=== PATIENT | male | born 2000 | race Caucasian/White ===

== ENCOUNTER 2025-07-25 14:59 | Outpatient (REF) | payer MEDICAID, SELFPAY ==
--- OUTSIDE RECORDS SUMMARY | 2025-07-25 14:00 | XMS_ITS | Encounter Summary ---
Author Organization [employer] Address [address] [facility] [address] [place] [address] Care Team Providers Care Skirt Maker Name Role Phone Faith Young CNP Primary Care Provider [phone] Encounter Details Date Type Department Care Team (Late st Contact Info) Description 07/25/2025 2:00 PM EDT Office Visit [facility] [address], [place] [id number] Faith Young CNP [address] [place] [address] Encounter to establish care (Primary Dx); Dissecting cellulitis of scalp; Chronic bilateral low back pain without sciatica Social History Tobacco Use Types Packs/Day Years Used Date Smoking Tobacco: Never Smokeless Tobacco: Never Tobacco Cessation:Counseling Given: Not Answered Alcohol Use Standard Drinks/Week Comments Never 0 (1 standard drink = 0.6 oz pur e alcohol) Sex and Gender Information Value Date Recorded Sex Assigned at Male 07/24/2025 3:39 PM EDT Legal Sex Male 12:03 PM EDT Gender Identity Male 07/24/2025 3:39 PM EDT Sexual Orientation Don't know 07/24/2025 3: 39 PM EDT documented as of this encounter Last Filed Vital Signs Vital Sign Reading Time Taken Comments Blood Pressure 144/82 07/25/2025 2:24 PM EDT Pulse 70 07/25/2025 2:24 PM EDT Temperature 36.4 C (97.6 F) 07/25/2025 2:24 PM EDT Respiratory Rate 20 07/25/2025 2:24 PM EDT Oxygen Saturation - - Inhaled Oxygen Concentration - - Weight 72.2 kg (159 lb 3.2 oz) 07/25/2025 2:24 P M EDT Height 180.3 cm (5' 11 ) 07/25/2025 2:24 PM EDT Body Mass Index 22.2 07/25/2025 2:24 PM EDT documented in this encounter Progress Notes * Faith Young, AMNA - 07/25/2025 2:00 PM EDT Images from the original note were not included. Subjective: Naga Bolaños is a 24 y.o. male who presents to the office for a new patient visit. Previous [facility]- Naun To PA-C. Interim history: Last PCP visit 03/2023 Current concerns: Bumps on base of neck/scalp Chronic low back pain no associated weakness in lower legs, no joint issues, no prior back injuries, no issues with urination or bowel movements since onset. Possible history of scoliosis, previouslytold it was possible but never confirmed by imaging, no prior bracing or physical therapy Problem List[1] Surgical History[2] Family History[3] Social History Living situation: lives with two brothers, cousin and his partner Employment/Education: unemployed Diet/exercise: Substance use: denies any substance Sexual activity: AFAB partners, would like STI screening today Mental health: No data recorded Allergies[4] Review of Systems Constitutional: Negative for chills, fatigue, fever and unexpected weight change. HENT: Negative. Eyes: Negative. Respiratory: Negative. Cardiovascular: Negative. Gastrointestinal: Negative for constipation, diarrhea, nausea and vomiting. Endocrine: Negative. Genitourinary: Negative. Musculoskeletal: Positive for arthralgias and back pain. Negative for gait problem, joint swelling,myalgias, neck pain and neck stiffness. Skin: Positive for color change and rash. Allergic/Immunologic: Negative. Neurological: Negative. Psychiatric/Behavioral: Negative. Vitals: 07/25/25 1424 BP: (!) 144/82 BP Location: Left arm Patient Position: Sitting BP Cuff Size: Adult Pulse: 70 Resp: 20 Temp: 97.6 ??F (36.4 ??C) TempSrc: Oral Weight: 159 lb 3.2 oz (72.2 kg) Height: 5' 11 (1.803 m) Physical Exam Vitals reviewed. Constitutional: General: He is not in acute distress. Appearance: Normal appearance. He is not ill-appearing, toxic-appearing or diaphoretic. HENT: Head: Normocephalic and atraumatic. Right Ear: Tympanic membrane normal. Left Ear: Tympanic membrane normal. Eyes: Extraocular Movements: Extraocular movements intact. Pupils: Pupils are equal, round, and reactive to light. Cardiovascular: Rate and Rhythm: Normal rate and regular rhythm. Pulses: Normal pulses. Heart sounds: Normal heart sounds. No murmur heard. No friction rub. No gallop. Pulmonary: Effort: Pulmonary effort is normal. No respiratory distress. Breath sounds: Normal breath sounds. No stridor. No wheezing, rhonchi or rales. Chest: Chest wall: No tenderness. Musculoskeletal: Cervical back: Neck supple. No tenderness. Right lower leg: No edema. Left lower leg: No edema. Lymphadenopathy: Cervical: No cervical adenopathy. Skin: Neurological: General: No focal deficit present. Mental Status: He is alert and oriented to person, place, and time. Mental status is at baseline. Psychiatric: Mood and Affect: Mood normal. Behavior: Behavior normal. Thought Content: Thought content normal. Judgment: Judgment normal. Assessment & Plan Encounter to establish care Routine Screening and Health Maintenance Optometry: No Dental: Yes ASCVD risk: 24 y.o. male low Lab Review: orders written for new lab studies as appropriate; see orders Flu shot due otherwise IMMs UTD Routine Cancer Screening Colon CA: not indicated d/t age, will consider earlier screening due to family hx Lung CA: not indicated d/t age and lack of smoking hx PSA: not indicated d/t age Orders: CBC auto differential; Future Basic Metabolic Panel; Future Lipid Panel, Standard; Future HIV-1/2 Antigen and Antibodies, Fourth Generation, with Reflexes; Future Hepatitis C Antibody with Reflex to HCV, RNA, Quantitative, Real-Time PCR; Future Vitamin D, 25-Hydroxy, Total, Immunoassay; Future TSH W/Reflex to FT4; Future RPR (Monitor) with Reflex to Titer; Future Chlamydia/N. 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 Take with a full glass of water and do not lie down for at least 30 minutes after. Chronic bilateral low back pain without sciatica Plan to obtain imaging to confirm scoliosis and evaluate extent of scoliosis Orders: XR Scoliosis survey; Future Scheduled follow-up appointment in 3 months to reassess response to treatment and monitor skin and spine conditions. Current Medications[5] There is no immunization history on file for this patient. Follow up in about 3 months (around 10/24/2025). [1] Patient Active Problem List Diagnosis Vitamin D deficiency, unspecified Skin lesions Scoliosis [2] History reviewed. No pertinent surgical history. [3] Family History Problem Relation Name Age of Onset Diabetes type II Mother Colon cancer Father Colon cancer Paternal Grandmother [4] No Known Allergies [5] Current Outpatient Medications Medication Sig Dispense Refill clobetasol (Olux) 0.05 % topical foam Apply topically 2 times daily. ibuprofen 800 MG tablet Take 1 tablet by mouth every 6 (six) hours during the day. doxycycline (Vibra-Tabs) 100 MG tablet Take 1 tablet (100 mg) by mouth 2 times daily. Take with a full glass of water and do not lie down for at least 30 minutes after. 60 tablet 2 No current facility-administered medications for this visit. documented in this encounter Plan of Treatment Scheduled Orders Name Type Priority Associated Diagnoses Orde r Schedule Basic Metabolic Panel Lab Routine Encounter to establish care Expected: 07/25/2025 (Approximate), Expires: 07/25/2026 Lipid Panel, Standard Lab Routine Encounter to establish care Expected: 07/25/2025 (Approximate), Expires: 07/25/2026 HIV-1/2 Antigen and Antibodies, Fourth Generation, with Reflexes Lab Routine Encounter to establish care Expected: 07/25/2025 (Approximate), Expires: 07/25/2026 Hepatitis C Antibody with Reflex to HCV, RNA, Quantitative, Real-Time PCR Lab Routine Encounter to establish care Expected: 07/25/2025, Expires: 07/25/2026 Vitamin D, 25-Hydroxy, Total, Immunoassay Lab Routine Encounter to establish care Expected: 07/25/2025 (Approximate), Expires: 07/25/2026 TSH W/Reflex to FT4 Lab Routine Encounter to establish care Expected: 07/25/2025 (Approximate), Expires: 07/25/2026 RPR (Monitor) with Reflex to Titer Lab Routine Encounter to establish care Expected: 07/25/2025, Expires: 07/25/2026 Chlamydia/N. Gonorrhoeae, PCR, Urine Lab Routine Encounter to establish care Ordered: 07/25/2025 XR Scoliosis survey Imaging Routine Chronic bilateral low back pain without sciatica Expected: 07/25/2025, Expires: 07/25/2026 documented as of this encounter Procedures Procedure Name Priority Date/Time Associated Diagnosis Comments CBC WITH AUTO DIFFERENTIAL Routine 07/25/2025 3:07 PM EDT Encounter to establish care documented in this encounter Results * (ABNORMAL) CBC auto differential (07/25/2025 3:07 PM EDT) White Blood Count 5.5 4.8 - 10.8 X10*3/uL [facility] Red Blood Count 4.94 4.60 - 5.80 X10*6/uL [facility] Hemoglobin 14.2 14.0 - 18.0 g/dl [facility] Hematocrit 42.5 42.0 - 52.0 % [facility] Mean Corpuscular Volume 86.0 80.0 - 98.0 fL [facility] Mean Corpuscular Hemoglobin 28.7 27.0 - 33.0 pg [facility] Mean Corpuscular HGB Conc 33.4 31.0 - 36.0 g/dl [facility] Red Cell Distribution Width 13.4 11.0 - 16.0 % [facility] Platelet Count 240 160 - 400 X10*3/uL [facility] Mean Platelet Volume 11.7 9.4 - 12.4 fL [facility] Neutrophils Percent Auto 36.9(L) 45 - 73 % [facility] Imm Gran Pct Auto 0.2 0.0 - 0.4 % [facility] Lymphocytes Percent Auto 52.5(H) 20 - 40 % [facility] Monocytes Percent Auto 9.0 2 - 11 % [facility] Eosinophils Percent Auto 0.7 0 - 4 % [facility] Basophils Percent Auto 0.7 0 - 2 % [facility] NRBC Pct Auto 0.0 0.0 - 0.2 /100WBC [facility] Neutrophils Absolute Auto 2.0 2.0 - 8.3 x10*3/uL [facility] Imm Gran Abs Auto 0.01 0.00 - 0.03 X10*3/uL [facility] Lymphocytes Absolute Auto 2.9 1.2 - 4.9 X10*3/uL [facility] Monocytes Absolute Auto 0.5 0.1 - 1.2 X10*3/uL [facility] Eosinophils Absolute Auto 0.0 0.0 - 0.4 X10*3/uL [facility] Basophils Absolute Auto 0.0 0.0 - 0.2 X10*3/uL [facility] NRBC Abs Auto 0.000 0.0 - 0.012 X10*3/uL [facility] Blood Venous blood specimen / Unknown 07/25/2025 3:07 PM EDT 07/25/2025 6:17 PM EDT Faith Young [facility] LAB BLOOD ORDERABLES Emy l Result [facility] [address] [place] [address] [phone] documented in this encounter Visit Diagnoses Diagnosis Encounter to establish care- Primary Dissecting cellulitis of scalp Other specified disease of hair and hair follicles Chronic bilateral low back pain without sciatica documented in this encounter Care Teams Skirt Maker Relationship Specialty Start Date End Date Faith Young CNP [address] [place] [address] PCP - General Family Medicine 07/25/25 documented as of this encounter
[2025-07-25 18:25] LABS: MANUAL DIFF FLAG NO
[2025-07-25 18:35] LABS: Hematocrit 42.5 % (42.0-52.0); Hemoglobin 14.2 g/dl (14.0-18.0); Imm Gran Abs Auto 0.01 X10*3/uL (0.00-0.03); Imm Gran Pct Auto 0.2 % (0.0-0.4); Lymphocytes Absolute Auto 2.9 X10*3/uL (1.2-4.9); Mean Corpuscular HGB Conc 33.4 g/dl (31.0-36.0); Mean Corpuscular Hemoglobin 28.7 pg (27.0-33.0); Mean Corpuscular Volume 86.0 fL (80.0-98.0); NRBC Abs Auto 0.000 X10*3/uL (0.0-0.012); NRBC Pct Auto 0.0 /100WBC (0.0-0.2); Platelet Count 240 X10*3/uL (160-400); Red Blood Count 4.94 X10*6/uL (4.60-5.80); White Blood Count 5.5 X10*3/uL (4.8-10.8)
--- OUTSIDE RECORDS SUMMARY | 2025-07-25 18:40 | XMS_ITS | Clinical Summary ---
Author Organization [facility] Address [address] [place] [address] Phone Care Team Providers Care Patient Assistant Name Role Phone Lakisha Joseph MD Unavailable [phone] Allergies No known active allergies Medications clobetasol (OLUX) 0.05 % topical foamIndications :Dermatitis Apply topically 2 (two) times a day. Apply to affected area of scalp. Stop after 2 weeks. 100 g 3 Active Active Problems Problem Noted Date Diagnosed Date Encounter for fertility planning 03/10/2023 Assessment & Plan (03/10/2023 1:48 PM EDT): Discussed with patient that fertility testing at this time not completely necessary. Discussed with patient that if you would like I am happy to refer him to a specialist. However, would recommend that he and his partner continue trying to conceive for at least 12 months. If they are unable to conceive within 12 months recommend they speak with patient's partners PHOTOGRAPHIC PLATEMAKER regarding fertility testing and management. Could consider following up with PHOTOGRAPHIC PLATEMAKER sooner as needed. Dermatitis 07/10/2022 Assessment & Plan (03/10/2023 1:47 PM EDT): Patient has had recurrent dermatitis on posterior scalp. Has previously been well managed with clobetasol. Refill sent to the pharmacy. Given the symptoms have been recurrent and persistent recommend referral to dermatology for further evaluation management. Patient agreeable for referral placed today. 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 Advised to limit hair removal in this area for now. He will try clobetasol foam for the itchy patch. Order for dermatology placed. Abnormal glucose 07/10/2022 Assessment & Plan (07/10/2022 11:22 AM EDT): Abnormal glucose - he confirms that he is not fasting today. Unclear if he was fasting at his last visit (concurrently mildly elevated TG). Due to the convenience of being in the office today, He will repeat non-fasting today rather than return for fasting labs. Vitamin D deficiency, unspecified 07/10/2022 Assessment & Plan (03/10/2023 1:47 PM EDT): Plan to check labs we will follow-up with results. Manage as needed. Assessment & Plan (07/10/2022 11:21 AM EDT): Vit D def - will repeat non-fasting labs today to verify. Mother will be contacted with results. Annual physical exam 12/22/2021 Assessment & Plan (03/10/2023 1:47 PM EDT): Naga Bolaños is a 22 y.o. male presenting today for annual preventative health care visit. Screening/monitoring lab orders placed today. Patient to obtain labs. Will follow up with them on the patient gateway if labs are stable/do not require change in therapy. Will follow up by phone (either my MA or myself) as appropriate. Discussed with patient that they are up to date with recommended vaccinations. Age related cancer screening review: Skin cancer - Discussed with patient importance of skin cancer prevention. Colon cancer -deferred given family history and age. Lung cancer -deferred given smoking history and age. Prostate cancer -deferred given age. Testicular cancer screening - recommend regular self testicular exams at home. Follow up as needed for any new changes. Assessment & Plan (12/22/2021 4:23 PM EST): Naga Bolaños is a 21 y.o. male presenting today for annual preventative health care visit. Discussed with patient importance of regular eye exams. Discussed with patient importance of regular dental care with a dentist. Screening/monitoring lab orders placed today. Patient to obtain labs. Will follow up with them on the patient gateway if labs are stable/do not require change in therapy. Will follow up by phone (either my [place] or myself) as appropriate. Discussed with patient that they are up to date with recommended vaccinations. Healthy Lifestyle: Discussed with patient importance of lifestyle optimization. Should continue to improve diet and exercise. Discussed resources to assist with learning about health diets. Encourage patient to attempt to reach goal of at least 30 minutes of continues cardiovascular exercise daily. Discussed importance of stretching/icing. Should build up to this goal gradually/as tolerated to avoid musculoskeletal injuries. Should follow up with our office with any questions or concerns. Recommended patient wear seat belt any time they are in the car. Recommended patient use bug spray as appropriate to reduce risk of mosquito bourne illness. Age related cancer screening review: Skin cancer - Discussed with patient importance of skin cancer prevention. Patient continue monitoring for new or changing skin lesions and follow-up with me if they occur. Colon cancer -deferred given family history and age. Lung cancer -patient does not qualify based on smoking history and age. Prostate cancer -deferred given age. Skin lesions 12/22/2021 Assessment & Plan (12/22/2021 4:22 PM EST): Discussed with patient and because of persistent scalp lesions unclear. Given chronicity of symptoms recommended referral to dermatology which patient is agreeable to. Need for hepatitis C screening test 12/22/2021 Assessment & Plan (12/22/2021 4:26 PM EST): Will assess labs and follow-up with results. Treat as appropriate. Screening for human immunodeficiency virus 12/22 Assessment & Plan (12/22/2021 4:27 PM EST): Will assess labs and follow-up with results. Treat as appropriate. Routine screening for STI (sexually transmitted infection) 12/22/2021 Assessment & Plan (12/22/2021 4:27 PM EST): Will assess screening labs and follow-up with results. Treat as appropriate. Learning disability 08/17/2018 Assessment & Plan (07/10/2022 11:17 AM EDT): Permission to speak with mother signed today Assessment & Plan (08/28/2019 10:35 AM EDT): Doing well in an adult program Scoliosis 07/27/2017 Assessment & Plan (12/22/2021 4:23 PM EST): Discussed with patient that depending on severity of scoliosis orthopedic surgery may recommend management. Patient is open to surgical management if needed per his report. Refer patient to orthopedics for further evaluation management. Immunizations Immunization Administration Dates Next Due DTaP, unspecified formulation 08/02/2006 ,10/26/2003,03/06/2003,11/24,09/20/2002 HPV9 08/28/2019,08/17/2018,07/27/2017 Hepatitis A, ped/adol, 2 dose 08/17/2018, 017 Hepatitis B, unspecified formulation 03/06/2003, 08/16/2002,07/14/2002 Influenza Quadrivalent MDCK w/Preservative IM 08/05/2021,09/03/2020,08/28/2019 Influenza Quadrivalent Prese rvative Free IM 08/17/2018,07/27/2017 MMR 08/02/2006,04/21/2004 Meningococcal MCV4O 08/17/2018,07/27/2017 Polio, Unspecified Formulation 6,10/26/2003,03/06/2003,11/24,09/20/2002 Tdap 09/09/2022,08/17/2013 Varicella 12/10/2008,04/21/2004 Social History Tobacco Use Types Packs/Day Years Used Date Smoking Tobacco: Never Smokeless Tobacco: Never Tobacco Cessation:Counseling Given: Not Answered Alcohol Use Standard Drinks/Week Comments Yes 0 (1 standard drink = 0.6 oz pur e alcohol) occasionally. Drinking henese Child or Family Care Answer Date Record ed Do you have problems with on e of the following making it difficult for you to work, study, or receive health care? I choose not to answer 03/10/2023 Education Answer Date Recorded Are you interested in more education? Not on pérez e 03/21/2025 Are you concerned about learning? Not on file 03/21/2025 No 03/21/2025 No 03/21/2025 Food Answer Date Recorded Within the past 6 months we worried whether our food would run out before we got money to buy more. Never True 03/10/2023 Within the past 6 months the food we bought just didn't last and we didn't have enough money to get more. Never True Residential Stability Answer Date Recor ded What is your housing situation today? I have milton sing 03/10/2023 How many times have you move d in the past 12 months? Zero (I did not move) 03/10/2023 Paying for Meds Answer Date Recorded Do you have trouble paying for medicines? No 03/10/2023 Paying Utility Bills Answer Date Record ed Do you have trouble paying your heating or elect ricity bill? No 03/10/2023 Transportation Answer Date Recorded Has the lack of transportati on kept you from medical appointments or from getting medications? No 03/10/2023 Unemployment Answer Date Recorded Are you currently unemployed or working on a part-time or temporary basis, and looking for work? I choose not to answer 03/10/2023 Digital Access Answer Date Recorded No 03/21/2025 No 03/21/2025 Reliable internet access at home? Not on file 03/21/2025 Device with a working camera? Not on file SNAP & WIC Answer Date Recorded Do you receive benefits from SNAP (the Supplemental Nutrition Assistance Program) or the Food Stamp Program? Yes 03/10/2023 SNAP is a free program, interested in learning m ore? Not on file 03/10/2023 Can we help you enroll in SNAP? Not on file 03/10/2023 Benefits received from WIC? Not on file 01/2023 WIC is a free program, interested in learning mo re? Not on file 03/10/2023 Can we help you enroll in WIC? Not on file 0 03/10/2023 Intimate Partner Violence Answer Date R ecorded Denied Basic Needs Not on file 03/10/2023 In the past 12 months have y ou been in a relationship with a person who hurts, threatens, or tries to control you? No 03/10/2023 Worried food would run out Not on file 03/10 In the past 12 months have y ou been in a relationship with a person who hurts, threatens, or tries to control you? No 03/10/2023 Sex and Gender Information Value Date Recorded Sex Assigned at Male 12/12/2021 2:12 PM EST Legal Sex Male 6:43 PM EDT Gender Identity Male 12/12/2021 2:12 PM EST Sexual Orientation Straight 12/12/2021 2: 12 PM EST Last Filed Vital Signs Vital Sign Reading Time Taken Comments Blood Pressure 132/88 03/10/2023 12:57 PM EDT Pulse 81 03/10/2023 12:57 PM EDT Temperature 36.3 C (97.3 F) 07/10/2022 10:17 AM EDT Respiratory Rate - - Oxygen Saturation 96% 03/10/2023 12:57 PM EDT Inhaled Oxygen Concentration - - Weight 65.3 kg (144 lb) 03/10/2023 12:57 PM EDT Height 174 cm (5' 8.5 ) 03/10/2023 12:57 PM EDT Body Mass Index 21.57 03/10/2023 12:57 PM EDT Plan of Treatment Health Maintenance Due Date Last Done Comments SMOKING Hx and SMOKELESS TOBACCO SCREENING 2012 DEPRESSION SCREENING 03/10/2024 03/10/2023, 09/03/20 20 INFLUENZA VACCINE (#1) 2025 , 09/03/2020, 08/28/2019, Additional history exists COVID-19 VACCINE ( season) 2025 12/22/2021, 11/24/2021 Adult Td,Tdap Booster 09/09/2032 09/09/2022, 013 HEPATITIS A VACCINES Completed 08/17/2018, 07/27/20 17 MENINGOCOCCAL VACCINES (ACWY) Completed 08/17/2018, 07/27/2017 HPV VACCINES Completed 08/28/2019, 08/08, 07/27/2017 HEPATITIS C SCREENING Completed 12/22/2021, 022 HIV ONE-TIME SCREENING (18-65 YEARS) Completed 12/22/2021 HIB VACCINES Aged Out No longer eligi ble based on patient's age to complete this topic MENINGOCOCCAL VACCINES (B) Aged Out N o longer eligible based on patient's age to complete this topic PNEUMOCOCCAL VACCINES (0-49 years) Aged Out No longer eligible based on patient's age to complete this topic Medical Devices Not on file Procedures Procedure Name Priority Date/Time Associated Diagnosis Comments HEPATITIS C ANTIBODY, QUALITATIVE Routine 12/22/2021 4:13 PM EST Annual physical exam Need for hepatitis C screening test from Last 3 Months or Most Recently Relevant to Health Maintenance Results * Hepatitis C antibody, qualitative (12/22/2021 4:13 PM EST) HCV ANTIBODY Non-Reacti ve Non-Reacti ve [facility] Blood 12/22/2021 4:13 PM EST 12/22/2021 4:28 PM EST Naun To PA-C LAB BLOOD ORDERABLES Final Result Performing Organization Address City/State/[facility] Co de Phone Number [facility], [address] [address], [facility] from Last 3 Months or Most Recently Relevant to Health Maintenance Insurance [facility] [address] [facility] [place] [place] [facility] Member Subscriber Plan / Payer ( fective 2023-Present) Name:Naga Bolaños Relation to Subscriber:Self Name:Naga Bolaños Payer ID:[id number] (NAIC) Group ID:Not on file Type:Medicaid Address: [employer] [address] RAMONA ALONZO MD Care Teams Patient Assistant Relationship Specialty Start Date End Date Lakisha Joseph MD [address] [place] [address] [email or web address] Historical LMR Provider 12/08/18 Additional Source Comments The information contained in this document represents components of the legal health record. It is not the complete legal health record.[facility]
--- OUTSIDE RECORDS SUMMARY | 2025-07-25 18:40 | XMS_ITS | Encounter Summary ---
Author Organization [employer] Address [address] [facility] 7t [place] [address] Care Team Providers Care Warp Doffer Name Role Phone Faith Young CNP Primary Care Provider [phone] [phone] Encounter Details Date Type Department Care Team (Latest Contact Info) Description 07/25/2025 Travel Social History Tobacco Use Types Packs/Day Years Used Date Smoking Tobacco: Never Smokeless Tobacco: Never Alcohol Use Standard Drinks/Week Comments Never 0 (1 standard drink = 0.6 oz pur e alcohol) Sex and Gender Information Value Date Recorded Sex Assigned at Male 07/24/2025 3:39 PM EDT Legal Sex Male 12:03 PM EDT Gender Identity Male 07/24/2025 3:39 PM EDT Sexual Orientation Don't know 07/24/2025 3: 39 PM EDT documented as of this encounter Plan of Treatment Not on file documented as of this encounter Visit Diagnoses Not on filedocumented in this encounter Care Teams Warp Doffer Relationship Specialty Start Date End Date Faith Young CNP [address] [place] [address] PCP - General Family Medicine 07/25/25 documented as of this encounter
--- OUTSIDE RECORDS SUMMARY | 2025-07-25 18:40 | XMS_ITS | Clinical Summary ---
Author Organization [employer] Address [address] [facility] 7t [place] [address] Care Team Providers Care Integration Project Manager Name Role Phone Faith Young CNP Primary Care Provider [phone] [phone] Allergies No known active allergies Medications ibuprofen 800 MG tablet Take 1 tablet by mouth every 6 (six) hours during the day. 4 Active clobetasol (Olux) 0.05 % topical foam Apply topically 2 times daily. 3 Active doxycycline (Vibra-Tabs) 100 MG tabletIndicatio ns:Dissecting cellulitis of scalp Take 1 tablet (100 mg) by mouth 2 times daily. Take with a full glass of water and do not lie down for at least 30 minutes after. 60 tablet 2 5 10/23/20 25 Active Active Problems Problem Noted Date Diagnosed Date Vitamin D deficiency, unspecified 07/10/2022 Skin lesions 12/22/2021 Scoliosis 07/27/2017 Encounters Date Type Department Care Team Description 07/25/2025 2:00 PM EDT Office Visit [facility] MED & PEDS [address] [place] [address] Faith Young CNP Encounter to establish care (Primary Dx); Dissecting cellulitis of scalp; Chronic bilateral low back pain without sciatica 07/25/2025 Travel 07/18/2025 Telephone [facility] MED & PEDS [address] [place] [address] Chrissy Hines MA chart prep 07/02/2025 Telephone [facility] MEDICINE [address] [place] [phone] Jonathan Cabello MD CHW - New Patient Assistance from Last 3 Months Family History Medical History Relation Name Comments Colon cancer Father Diabetes type II Mother Colon cancer Paternal Grandmother Relation Name Status Comments Father Mother Paternal Grandmother Social History Tobacco Use Types Packs/Day Years [...] Don't know 07/24/2025 3: 39 PM EDT Last Filed Vital Signs Vital Sign Reading [...] Mass Index 22.2 07/25/2025 2:24 PM EDT Plan of Treatment Health Maintenance Due Date Last Done Comments Depression Screening 1999 HIV Screening 1999 SDOH Screening 1999 Disability Screening 1999 Alcohol/Substance Use Screening 2011 Family Planning (PISQ) 2014 Hepatitis C Screening 2017 Influenza Vaccine (#1) 2025 , 09/03/2020, 08/28/2019, Additional history exists COVID-19 Vaccine ( season) 2025 Postponed from 07/09/2025 (Supply/Drug Shortage) Tobacco Screening 07/25/2026 07/25/2025 DTaP/Tdap/Td Vaccines (8 - Td or Tdap) 09/09/2032 09/09/2022, 08/17/2013, 08/02/2006, Additional history exists Zoster Vaccines (1 of 2) 2049 RSV Patients and Patients Aged 60 years or older (1 - 1-dose 75+ series) 2074 Hepatitis B Vaccines Completed 03/06/2003, 08/16/2002, 07/14/2002 IPV Vaccines Completed 08/02/2006, 10/08, 03/06/2003, Additional history exists Hepatitis A Vaccines Completed 08/17/2018, 07/27/20 17 Meningococcal Vaccine Completed 08/17/2018, 017 HPV Vaccines Completed 08/28/2019, 08/08, 07/27/2017 HIB Vaccines Aged Out No longer eligi ble based on patient's age to complete this topic Meningococcal B Vaccine Aged Out No l onger eligible based on patient's age to complete this topic Pneumococcal Vaccine: Pediatrics (0 to 5 Years) and At-Risk Patients (6 to 49) Years Aged Out No longer eligible based on patient's age to complete this topic RSV under 20 months Aged Out No longe r eligible based on patient's age to complete this topic Rotavirus Vaccines Aged Out No longer eligible based on patient's age to complete this topic Procedures Procedure Name Priority Date/Time Associated Diagnosis Comments CBC WITH AUTO DIFFERENTIAL Routine 07/25/2025 3:07 PM EDT Encounter to establish care from Last 3 Months Results * (ABNORMAL) CBC auto differential (07/25/2025 3:07 PM EDT) White Blood Count 5.5 4.8 - 10.8 X10*3/uL [facility] Red Blood Count 4.94 4.60 - 5.80 X10*6/uL [facility] Hemoglobin 14.2 14.0 - 18.0 g/dl [facility] Hematocrit 42.5 42.0 - 52.0 % [facility] Mean Corpuscular Volume 86.0 80.0 - 98.0 fL [facility] Mean Corpuscular Hemoglobin 28.7 27.0 - 33.0 pg [facility] Mean Corpuscular HGB Conc 33.4 31.0 - 36.0 g/dl [facility] Red Cell Distribution Width 13.4 11.0 - 16.0 % [facility] Platelet Count 240 160 - 400 X10*3/uL [facility] Mean Platelet Volume 11.7 9.4 - 12.4 fL [facility] Neutrophils Percent Auto 36.9(L) 45 - 73 % [facility] Imm Gran Pct Auto 0.2 0.0 - 0.4 % [facility] Lymphocytes Percent Auto 52.5(H) 20 - 40 % [facility] Monocytes Percent Auto 9.0 2 - 11 % [facility] Eosinophils Percent Auto 0.7 0 - 4 % [facility] Basophils Percent Auto 0.7 0 - 2 % [facility] NRBC Pct Auto 0.0 0.0 - 0.2 /100WBC [facility] Neutrophils Absolute Auto 2.0 2.0 - 8.3 x10*3/uL [facility] Imm Gran Abs Auto 0.01 0.00 - 0.03 X10*3/uL [facility] Lymphocytes Absolute Auto 2.9 1.2 - 4.9 X10*3/uL [facility] Monocytes Absolute Auto 0.5 0.1 - 1.2 X10*3/uL [facility] Eosinophils Absolute Auto 0.0 0.0 - 0.4 X10*3/uL [facility] Basophils Absolute Auto 0.0 0.0 - 0.2 X10*3/uL [facility] NRBC Abs Auto 0.000 0.0 - 0.012 X10*3/uL [facility] Blood Venous blood specimen / Unknown 07/25/2025 3:07 PM EDT 07/25/2025 6:17 PM EDT [facility] REPRESENTAT[facility] LAB BLOOD ORDERABLES Emy l Result [facility] [address] [place] [address] [phone] from Last 3 Months Insurance [facility] C3 Care Teams Integration Project Manager Relationship Specialty Start Date End Date Faith Young CNP [address] [place] [phone] PCP - General Family Medicine 07/25/25
[2025-07-25 21:38] LABS: Anion Gap 14 (12-20); Blood Urea Nitrogen 18 mg/dL (9-16); Calcium 9.7 mg/dL (8.4-10.2); Carbon Dioxide 27 mmol/L (22-29); Chloride 104 mmol/L (96-108); Cholesterol 146 mg/dL (<200); Estimated Glomerular Filt Rate > 60; HDL Cholesterol 40 mg/dL (>40); Potassium 3.7 mmol/L (3.3-5.1); Sodium 141 mmol/L (135-145); Triglycerides 139 mg/dL (<150)
[2025-07-26 06:16] LABS: HIV Num 1 0.05 S/CO (0.00-0.99); ~HepC Num1 0.09 S/CO (0.00-0.79); ~Hepatitis C Antibody Nonreactive (Nonreactive)
== END 2025-07-25 15:00 | disposition home or self-care (01) ==
LOC: HO.CHCLDS 14:59
DX: Z76.89 Persons encountering health services in other specified circumstances (principal); G89.29 Other chronic pain; M54.50 Low back pain, unspecified; Z11.4 Encounter for screening for human immunodeficiency virus [HIV]; Z11.59 Encounter for screening for other viral diseases; Z11.3 Encounter for screening for infections with a predominantly sexual mode of transmission
CPT/HCPCS: 36415; 80048; 80061; 82306; 84443; 85025; 86592; 86803; 87389

== ENCOUNTER 2025-10-25 12:23 | Outpatient (REF) | payer MEDICAID, SELFPAY ==
--- NOTE | ~2025-10-25 | XR_ITS ---
EXAMINATION: XR SCOLIOSIS CLINICAL INFORMATION: scoliosis, chronic back pain TECHNIQUE: AP view of the cervical, thoracic, and lumbar spine. There was stitching of the AP views. FINDINGS: Coronal balance: Negative. The geometric center of C7 projected 2.5 cm left of the center of S1. Curvature: Cervical thoracic: There is 15 degrees levoscoliosis. Thoracic: There is 21 degrees dextroscoliosis with apex at T 10 and a mild rotational component. Thoracolumbar: There is 17 degrees levoscoliosis with minimal rotational component with apex at inferior L1. [place]. Risser Stage: 5: Completely ossified iliac crest apophysis and closed physis. XR/XR scoliosis survey IMPRESSION: Mild S-shaped scoliosis with a mild negative coronal balance. Electronically signed by: Sidney Corral MD 10/25/2025 12:53 PM [facility]
--- OUTSIDE RECORDS SUMMARY | 2025-10-25 15:45 | XMS_ITS | Encounter Summary ---
Author Organization [employer] Address [address] [facility] 7t [place] [address] Care Team Providers Care Weatherization Administrator Name Role Phone Faith Young CNP Primary Care Provider [phone] [phone] Reason for Visit * Reason Comments Follow-up Encounter Details Date Type Department Care Team (Late st Contact Info) Description 10/25/2025 3:45 PM EST Office Visit [facility]EDS [address] [place] [address] Faith Young CNP [address] [place] [address] Arrived Social History Tobacco Use Types Packs/Day Years [...] Sign Reading Time Taken Comments Blood Pressure 142/82 10/25/2025 3:46 PM EST Pulse 82 10/25/2025 3:46 PM EST Temperature 36.7 C (98 F) 10/25/2025 3:46 PM EST Respiratory Rate 14 10/25/2025 3:46 PM EST Oxygen Saturation 99% 10/25/2025 3:46 PM EST Inhaled Oxygen Concentration - - Weight 73.9 kg (163 lb) 10/25/2025 3:46 PM EST Height 180.3 cm (5' 11 ) 10/25/2025 3:46 PM EST Body Mass Index 22.73 10/25/2025 3:46 PM EST documented in this encounter Plan of Treatment Not on file documented as of this encounter Visit Diagnoses Not on filedocumented in this encounter Care Teams Weatherization Administrator Relationship Specialty Start Date End Date Faith Young CNP [address] [place] [address] [place] [address] PCP - General Family Medicine 07/25/25 documented as of this encounter
--- OUTSIDE RECORDS SUMMARY | 2025-10-25 16:14 | XMS_ITS | Clinical Summary ---
Author Organization [facility] Address [address] [facility] [address] [place] [address] Phone Care Team Providers Care Sheep Farm Manager Name Role Phone Lakisha Joseph MD Unavailable [phone] Allergies No known active allergies Medications [...] months recommend they speak with patient's partners [facility]FE AIDE regarding fertility testing and management. Could consider following up with [facility] AIDE sooner as needed. Dermatitis 07/10/2022 Assessment & [...] EST) HCV ANTIBODY Non-Reacti ve Non-Reacti ve [facility] Blood 12/22/2021 4:13 PM EST 12/22/2021 4:28 PM EST Naun To PA-C LAB BLOOD BKR ORDERA BLES Final Result [address] [address], [facility] from Last 3 Months or Most Recently Relevant to Health Maintenance Insurance [facility] [address] [facility] [place] [facility] Care Teams Sheep Farm Manager Relationship Specialty Start Date End Date Lakisha Joseph MD [address] [place] [address] [email or web address] Historical LMR Provider 12/08/18 Additional Source Comments The information contained in this document represents components of the legal health record. It is not the complete legal health record.[facility]
--- OUTSIDE RECORDS SUMMARY | 2025-10-25 16:15 | XMS_ITS | Clinical Summary ---
Author Organization [employer] Address [address] [facility] [address] 7[address] [place] [address] Care Team Providers Care Electrical Sign Servicer Name Role Phone Faith Young CNP Primary Care Provider [phone] [phone] Allergies No known active allergies Medications ibuprofen [...] after. 60 tablet 2 5 10/23/20 25 doxycycline (Vibramycin) 100 MG capsuleIndicati ons:Chlamydia contact Take 1 capsule (100 mg) by mouth 2 times daily for 7 days. Take with at least 8 ounces (large glass) of water, do not lie down for 30 minutes after 14 capsule 5 10/10/20 25 Active Problems Problem Noted Date Diagnosed Date Vitamin D deficiency, unspecified 07/10/2022 Skin lesions 12/22/2021 Scoliosis 07/27/2017 Encounters Date Type Department Care Team Description 10/25/2025 3:45 PM EST Office Visit [facility] MED & PEDS [address] [place] [address] Faith Young CNP Arrived 10/25/2025 Travel 10/24/2025 Telephone [facility] MED & PEDS [address] [place] [address] Faith Young CNP chart prep 10/03/2025 Orders Only [facility] [address] [place] [phone] Faith Young CNP Chlamydia contact (Primary Dx) 08/28/2025 Population Health Risk Score [facility] (C3) [address] [address] Provider, Population Health Generic from Last 3 Months Immunizations Immunization Administration Dates Next Due DTaP, Unspecified 08/02/2006, 3,03/06/2003,11/24,09/20/2002 HPV 9-Valent 08/28/2019,08/17/2018,07/27/2017 Hep A, ped/adol, 2 dose 08/17/2018,07/27/2017 Hep B, Unspecified 03/06/2003,08/16/2002, 002 INFLUENZA INJECTABLE QUADRIV ALANT CCIIV4 MDCK Multi-dose vial 08/05/2021,09/03/2020,08/28/2019 Influenza injectable quadriv alent preservative free 08/17/2018,07/27/2017 MMR 08/02/2006,04/21/2004 Meningococcal MCV4O 08/17/2018,07/27/2017 Polio, Unspecified 08/02/2006, 3,03/06/2003,11/24,09/20/2002 Tdap 09/09/2022,08/17/2013 Varicella 12/10/2008,04/21/2004 Family History Medical History Relation Name Comments [...] Mass Index 22.73 10/25/2025 3:46 PM EST Plan of Treatment Health Maintenance Due Date Last Done Comments Depression Screening 1999 SDOH Screening 1999 Disability Screening 1999 Alcohol/Substance Use Screening 2011 Family Planning (PISQ) 2014 COVID-19 Vaccine ( season) 2025 Influenza Vaccine (#1) 2025 , 09/03/2020, 08/28/2019, Additional history exists Tobacco Screening 07/25/2026 07/25/2025 Lipid Panel 07/25/2030 07/25/2025 DTaP/Tdap/Td Vaccines (8 - Td or [...] 017 HPV Vaccines Completed 08/28/2019, 08/08, 07/27/2017 HIV Screening Completed 07/25/2025 Hepatitis C Screening Completed 07/25/2025 HIB Vaccines Aged Out No longer eligi [...] Procedure Name Priority Date/Time Associated Diagnosis Comments XR SCOLIOSIS SURVEY Routine 10/25/2025 1 2:43 PM EST Chronic bilateral low back pain without sciatica HEPATITIS C AB W/REFL TO HCV RNA, QN, PCR Routine 07/25/2025 3:07 PM EDT Encounter to establish care HIV 1/2 ANTIGEN/ANTIBODY, FOURTH GENERATION W/RFL Routine 07/25/2025 3:07 PM EDT Encounter to establish care LIPID PANEL, STANDARD Routine 07/25/2025 3:07 PM EDT Encounter to establish care from Last 3 Months or Most Recently Relevant to Health Maintenance Results * XR Scoliosis survey (10/25/2025 12:43 PM EST) Anatomical Region Laterality Modality Spine N/A Radiographic Yin ging 10/25/2025 12:4 3 PM EST Narrative 10/25/2025 12:56 PM EST [place] [address] XRay Report Signed Patient: Naga Bolaños MR#: [id number] : 2000 Acct:[id number] Age/Sex: 24 / M ADM Date: 10/25/25 Loc: TONE Attending Dr: Faith Young BRAIDING OPERATOR Ordering Physician: Faith Young NP Date of Service: 10/25/25 Procedure(s): XR scoliosis survey Accession Number(s): [id number] cc: Faith Young NP Reason for Exam: possible scoliosis, chronic back pain EXAMINATION: XR SCOLIOSIS CLINICAL INFORMATION: scoliosis, chronic back pain TECHNIQUE: AP view of the cervical, thoracic, and lumbar spine. There was stitching of the AP views. FINDINGS: Coronal balance: Negative. The geometric center of C7 projected 2.5 cm left of the center of S1. Curvature: Cervical thoracic: There is 15 degrees levoscoliosis. Thoracic: There is 21 degrees dextroscoliosis with apex at T 10 and a mild rotational component. Thoracolumbar: There is 17 degrees levoscoliosis with minimal rotational component with apex at inferior L1. [place]. Risser Stage: 5: Completely ossified iliac crest apophysis and closed physis. XR/XR scoliosis survey IMPRESSION: Mild S-shaped scoliosis with a mild negative coronal balance. Electronically signed by: Sidney Corral MD 10/25/2025 12:53 PM EST Dictated By: Sidney Corral MD Signed By: <Electronically signed by Sidney Corral MD in OV> 10/25/25 1253 DD/ 1243 TD/TT: 10/25/25 1245 Conservation Officer: Procedure Note Donotuseinterpreter, Image - 10/25/[address] [address] XRay Report Signed Patient: Naga BolañosMR#: [id number] : 2000Acct:[id number] Age/Sex: 24 / MADM Date: 10/25/25 Loc: TONE Attending Dr: Faith Young NP Ordering Physician: Faith Young NP Date of Service: 10/25/25 Procedure(s): XR scoliosis survey Accession Number(s): [id number] cc: Faith Young NP Reason for Exam: possible scoliosis, chronic back pain EXAMINATION: XR SCOLIOSIS CLINICAL INFORMATION: scoliosis, chronic back pain TECHNIQUE: AP view of the cervical, thoracic, and lumbar spine. There was stitching of the AP views. FINDINGS: Coronal balance: Negative. The geometric center of C7 projected 2.5 cm left of the center of S1. Curvature: Cervical thoracic: There is 15 degrees levoscoliosis. Thoracic: There is 21 degrees dextroscoliosis with apex at T 10 and a mild rotational component. Thoracolumbar: There is 17 degrees levoscoliosis with minimal rotational component with apex at inferior L1. [place]. Risser Stage: 5: Completely ossified iliac crest apophysis and closed physis. XR/XR scoliosis survey IMPRESSION: Mild S-shaped scoliosis with a mild negative coronal balance. Electronically signed by: Sidney Corral MD 10/25/2025 12:53 PM EST RP Dictated By: Sidney Corral MD Signed By: <Electronically signed by Sidney Corral MD in OV> 10/25/25 1253 DD/ 1243 TD/TT: 10/25/25 1245 Conservation Officer: [facility] DAM OPERATOR IMG XR PROCEDURES Final R esult * Hepatitis C Antibody with Reflex to HCV, RNA, Quantitative, Real-Time PCR (07/25/2025 3:07 PM EDT) Hepatitis C Antibody Nonreactive Nonreactive [facility] Comment:Antibodies to HCV no t detected; does not exclude early acuteHCV infection. Blood Venous blood specimen / Unknown 07/25/2025 3:07 PM EDT 07/25/2025 6:17 PM EDT [facility] LAB BLOOD ORDERABLES Emy l Result [facility] [address] [place] [address] [phone] * HIV-1/2 Antigen and Antibodies, Fourth Generation, with Reflexes (07/25/2025 3:07 PM EDT) HIV AB/AG Nonreactive Nonreactive [facility] Comment:HIV-1 p24 Ag and/or HIV-1/HIV-2 Ab not detected.A test result that is nonreactive does not exclude thepossibility of exposure to or infection with HIV-1 and/orHIV-2. Nonreactive results in this assay for individualswith prior exposure to HIV-1 and/or HIV-2 may be due toantigen and antibody levels that are below the limit ofdetection of this assay.The GAMINSIDE HIV Ag/Ab Combo assay result andsupplemental assay results should be interpreted inconjunction with the patient's clinical presentation,history and other laboratory results. If the results areinconsistent with clinical evidence, additional testing issuggested to confirm the result. Blood Venous blood specimen / Unknown 07/25/2025 3:07 PM EDT 07/25/2025 6:17 PM EDT [facility] LAB BLOOD ORDERABLES Emy l Result Performing Organization Address [facility] Co de Phone Number [facility] [address] [place] [phone] * (ABNORMAL) Lipid Panel, Standard (07/25/2025 3:07 PM EDT) Triglycerides 139 <150 mg/dL [facility] Comment:Desirable Triglyceri de: less than 150 mg/dLBorderline High Triglyceride 150-199 mg/dLHigh Triglyceride: 200-499 mg/dLVery High Triglyceride: greater than or equal to 5OO mg/dL Cholesterol 146 <200 mg/dL [facility] Comment:Desirable Cholestero l: less than 200 mg/dLBorderline High Cholesterol: 200-239 mg/dLHigh Cholesterol: greater than 239 mg/dL LDL Cholesterol Calculated 79 <100 mg/dL [facility] Comment:Desirable LDL: less than 100 mg/dLNear Optimal/Above Optimal LDL: 110- 129 mg/dLBorderline High LDL: 130-159 mg/dLHigh LDL: 160-189 mg/dLVery High LDL: greater than or equal to 190 mg/dL HDL Cholesterol 40(L) >40 mg/dL [facility] Comment:Desirable HDL: great er than 40 mg/dL Note: This HDL assay may give artificially low results in patients with liver disease. Blood Venous blood specimen / Unknown 07/25/2025 3:07 PM EDT 07/25/2025 6:17 PM EDT [facility] LAB BLOOD ORDERABLES Emy l Result Performing Organization Address [facility]/ZIP Co de Phone Number [facility] [address] [place] [address] [phone] from Last 3 Months or Most Recently Relevant to Health Maintenance [facility] Care Teams Electrical Sign Servicer Relationship Specialty Start Date End Date Faith Young CNP [address] [place] [address] PCP - General Family Medicine 07/25/25
--- OUTSIDE RECORDS SUMMARY | 2025-10-25 16:15 | XMS_ITS | Encounter Summary ---
Author Organization [employer] Address [address] [facility] 7t [place] [address] Care Team Providers Care Grading Clerk Name Role Phone Faith Young CNP Primary Care Provider [phone] [phone] Encounter Details Date Type Department Care Team (Latest Contact Info) Description 10/25/2025 Travel Social History Tobacco Use Types Packs/Day [...] on filedocumented in this encounter Care Teams Grading Clerk Relationship Specialty Start Date End Date Faith Young CNP [address] [place] [address] PCP - General Family Medicine 07/25/25 documented as of this encounter
--- OUTSIDE RECORDS SUMMARY | 2025-10-25 16:15 | XMS_ITS | Encounter Summary ---
Author Organization [employer] Address [address] [facility] 7t [place] [address] Care Team Providers Care Milling Machine Set Up Operator Name Role Phone Faith Young CNP Primary Care Provider [phone] [phone] Reason for Visit * Reason Onset Date Comments chart prep 10/24/2025 Encounter Details Date Type Department Care Team (Late st Contact Info) Description 10/24/2025 Telephone [facility] [address] [place], [place] [phone] Faith Young CNP [address] [place] [address] chart prep Social History Tobacco Use Types Packs/Day Years [...] PM EDT documented as of this encounter Miscellaneous Notes * Telephone Encounter - Chrissy Hines [place] - 10/24/2025 2:08 PM EST Chart Prep Labs: not done Images: not done Referrals: not applicable Vaccines due: Covid and Flu Screenings: not applicable Overdue care gaps: SBIRT, PHQ-9, BECK-7, and Disability screen documented in this encounter Plan of Treatment Not on file documented as of this encounter Visit Diagnoses Not on filedocumented in this encounter Care Teams Milling Machine Set Up Operator Relationship Specialty Start Date End Date Faith Young CNP [address] [place] [phone] PCP - General Family Medicine 07/25/25 documented as of this encounter
== END 2025-10-25 12:24 | disposition home or self-care (01) ==
LOC: HO.XRAY 12:23
DX: G89.29 Other chronic pain (principal); M54.50 Low back pain, unspecified; M41.9 Scoliosis, unspecified
CPT/HCPCS: 72082

== ENCOUNTER → 2025-10-25 12:30 | Outpatient (BNV) | payer MEDICAID, SELFPAY | PROVIDERS: Visit Provider Radiology Diagnostic Radiology | DX: M41.87 Other forms of scoliosis, lumbosacral region (principal) | CPT/HCPCS: 72082 ==